=== PATIENT | male | born 1955 | race Hispanic/Latino ===

== ENCOUNTER 2021-01-30 11:19 | Emergency (ER) | payer BC, OTHER ==
[~2021-01-30] VITALS: Ht 167.6 cm; Wt 77.1 kg
[2021-01-30 11:59] LABS: BASOPHILS % (AUTO) 0.1 % (0.0-5.0); HEMATOCRIT 39.1 % (42-54); LYMPHOCYTES % (AUTO) 5.7 % (21.0-51.0); MEAN CORPUSCULAR HEMOGLOBIN 30.6 pg (27.0-33.0); MEAN CORPUSCULAR HGB CONC 33.5 g/dL (32.0-36.0); MEAN CORPUSCULAR VOLUME 91.4 fL (79-99); MONOCYTES % (AUTO) 3.5 % (3.0-13.0); NEUTROPHILS % (AUTO) 89.8 % (40.0-77.0); PLATELET COUNT (AUTO) 266 K/uL (130-400); RED BLOOD CELL COUNT(AUTO) 4.28 MIL/uL (4.50-6.20); RED CELL DISTRIBUTION WIDTH 13.4 % (11.0-15.5); WHITE BLOOD COUNT (AUTO) 16.1 K/uL (4.8-10.8)
[2021-01-30] MEDS ORDERED: MECLIZINE HCL 25 MG TABLET ONE (12:10)
[2021-01-30 12:16] LABS: CREATININE 1.2 mg/dL (0.5-1.5); POTASSIUM 5.2 mmol/L (3.5-5.1)
[2021-01-30 12:21] LABS: ALBUMIN 2.8 g/dL (3.5-5.0); BILIRUBIN,TOTAL 0.6 mg/dL (0.2-1.0); TOTAL PROTEIN, SERUM 7.7 g/dL (6.0-8.3)
[2021-01-30 12:34] LABS: APPEARANCE,URINE Clear (CLEAR); BILIRUBIN,URINE Negative (NEGATIVE); COLOR,URINE Yellow (YELLOW); GLUCOSE, URINE (UA) >=1000 mg/dL (NEGATIVE); KETONES,URINE Negative (NEGATIVE); LEUKOCYTE ESTERASE ,URINE Negative (NEGATIVE); NITRATE,URINE Negative (NEGATIVE); OCCULT BLOOD,URINE Negative (NEGATIVE); PH,URINE 5.5 (5.0-8.0); PROTEIN,URINE Negative (NEGATIVE); UROBILINOGEN,URINE 0.2 mg/dL (0.2-1.0)
[2021-01-30 12:42] LABS: RBC,URINE None Seen /HPF (0-1)
[2021-01-30 12:43] LABS: BACTERIA,URINE Few /HPF (None Seen); SQUAMOUS EPITHELIAL CELL,UR 0-2 /HPF (0-2); WBC,URINE None Seen /HPF (0-1)
[2021-01-30] MEDS ORDERED: NA ZIRCON CYCLOSIL(LOKELMA 10GM) PO ONE (13:00)
[2021-01-30] MEDS ORDERED: MECLIZINE HCL 25 MG TABLET PO ONE (13:00)
[2021-01-30 13:14] LABS: ABG BASE EXCESS -5.9 mmol/L (-2.0-3.0); ABG HCO3 16.5 mmol/L (21.0-28.0); ABG OXYGEN SATURATION 95.5 % (95.0-99.0); ABG PCO2 26 mmHg (35-48)
[2021-01-30] MEDS ORDERED: KAYEXALATE 15GM/60ML ONE (13:19)
[2021-01-30] MEDS ORDERED: KAYEXALATE 15GM/60ML PO ONE ×2 (13:30)
[2021-01-30] MEDS ORDERED: CEFTRIAXONE 1G VIAL IVP SCH (13:30)
[2021-01-30] MEDS ORDERED: ALBUTEROL INHALER 90MCG/INH IH PRN (13:30)
[2021-01-30] MEDS ORDERED: ACETAMINOPHEN WITH CODEINE 1 TAB TAB PO SCH (13:30)
[2021-01-30] MEDS ORDERED: BENZ-17 PO (13:33)
[2021-01-30] MEDS ORDERED: FLUT1DIS IH (13:33)
[2021-01-30] MEDS ORDERED: ALBU8.5H8 IH (13:33)
[2021-01-30] MEDS ORDERED: ALBUTEROL INHALER 90MCG/INH IH ONE (13:37)
[2021-01-30] MEDS ORDERED: CEFTRIAXONE 1G VIAL ONE (13:38)
[2021-01-30] MEDS ORDERED: ACETAMINOPHEN WITH CODEINE 1 TAB TAB ONE (13:38)
[2021-01-30 14:15] VITALS: BP 134/78
== END 2021-01-30 14:15 | disposition home or self-care (01) ==
LOC: EDH 11:19
DX: U07.1 COVID-19 (principal); J12.82 Pneumonia due to coronavirus disease 2019; J06.9 Acute upper respiratory infection, unspecified; E87.5 Hyperkalemia; E11.9 Type 2 diabetes mellitus without complications; Z79.84 Long term (current) use of oral hypoglycemic drugs
CPT/HCPCS: 36415; 36600; 70450; 71045; 80053; 81001; 82803; 84484; 85025; 87635; 93005; 96374; 99285; C9803; J0696

== ENCOUNTER 2021-02-07 12:45 | Observation (INO) | payer OTHER ==
[~2021-02-07] VITALS: Ht 170.2 cm; Wt 77.1 kg
[~2021-02-07 12:45] MED LIST: ALBU8.5H8 IH; BENZ-17 PO; FLUT1DIS IH
[2021-02-07 13:23] LABS: BASOPHILS % (AUTO) 0.5 % (0.0-5.0); EOSINOPHILS % (AUTO) 0.2 % (0.0-8.0); HEMATOCRIT 39.1 % (42-54); LYMPHOCYTES % (AUTO) 5.2 % (21.0-51.0); MEAN CORPUSCULAR HEMOGLOBIN 30.1 pg (27.0-33.0); MEAN CORPUSCULAR VOLUME 91.4 fL (79-99); MONOCYTES % (AUTO) 7.3 % (3.0-13.0); NEUTROPHILS % (AUTO) 83.4 % (40.0-77.0); PLATELET COUNT (AUTO) 568 K/uL (130-400); RED BLOOD CELL COUNT(AUTO) 4.28 MIL/uL (4.50-6.20)
[2021-02-07 13:54] LABS: B-TYPE NATRIURETIC PEPTIDE 49 pg/mL (0-100)
[2021-02-07 14:03] LABS: ALBUMIN 2.4 g/dL (3.5-5.0); BILIRUBIN,TOTAL 0.3 mg/dL (0.2-1.0); POTASSIUM 4.5 mmol/L (3.5-5.1); TOTAL PROTEIN, SERUM 7.7 g/dL (6.0-8.3)
[2021-02-07] MEDS ORDERED: CEFTRIAXONE 1G VIAL IVP ONE (15:00)
[2021-02-07] MEDS ORDERED: ENOXAPARIN SODIUM 40 MG/0.4 ML SYRINGE SQ ONE (15:00)
[2021-02-07] MEDS ORDERED: DEXAMETHASONE SOD PHOSPHATE 4 MG/ML 1ML VIAL IVP SCH (15:00)
[2021-02-07] MEDS ORDERED: AZITHROMYCIN 500MG VIAL IVPB ONE (15:00)
[2021-02-07] MEDS ORDERED: AZITHROMYCIN 500MG+NS 250ML 250 ML IV ONE (15:21)
[2021-02-07] MEDS ORDERED: LACTULOSE 20 GM/30 ML UDCUP PO PRN (17:00)
[2021-02-07] MEDS ORDERED: ACETAMINOPHEN 325 MG TAB PO PRN (17:00)
[2021-02-07] MEDS ORDERED: DOCUSATE SODIUM 100 MG CAP PO PRN (17:00)
[2021-02-07] MEDS: 0.9% NACL 250ML 250 ML IV SCH (17:00)
[2021-02-07] MEDS ORDERED: ALBUTEROL INHALER 90MCG/INH IH PRN (17:00)
[2021-02-07] MEDS ORDERED: CLONIDINE HCL 0.1 MG TABLET PO PRN (17:00)
[2021-02-07] MEDS ORDERED: ONDANSETRON 4MG INJ IVP PRN (17:00)
[2021-02-07] MEDS ORDERED: POTASSIUM CHLORIDE 10% ELIXIR 20 MEQ/15 ML UDCUP PO PRN (17:00)
[2021-02-07] MEDS ORDERED: CEFTRIAXONE 1G VIAL IVP SCH (17:00)
[2021-02-07] MEDS ORDERED: TEMAZEPAM 15 MG CAPSULE PO PRN (17:00)
[2021-02-07] MEDS ORDERED: GLUCAGON 1MG KIT 1 MG ML IM PRN (17:00)
[2021-02-07] MEDS ORDERED: ACETAMINOPHEN 650 MG SUPPOSITORY RC PRN (17:00)
[2021-02-07] MEDS ORDERED: KCL 20 MEQ ERTAB PO PRN (17:00)
[2021-02-07] MEDS ORDERED: LIDOCAINE HCL-MPF 1% 2ML VIAL IV PRN (17:00)
[2021-02-07] MEDS ORDERED: POTASSIUM CHLORIDE 20MEQ/100ML 100 ML IV PRN (17:00)
[2021-02-07] MEDS ORDERED: DEXTROSE 50%-WATER 50 ML DISP.SYRIN IV PRN (17:00)
[2021-02-07 17:12] LABS: ABG BASE EXCESS -2.6 mmol/L (-2.0-3.0); ABG HCO3 19.8 mmol/L (21.0-28.0); ABG OXYGEN SATURATION 95.3 % (95.0-99.0); ABG PCO2 29 mmHg (35-48)
[2021-02-07] MEDS ORDERED: IOHEXOL-350 75 ML VIAL IV ONE (17:17)
[2021-02-07 17:30] LABS: APPEARANCE,URINE Clear (CLEAR); BILIRUBIN,URINE Negative (NEGATIVE); COLOR,URINE Yellow (YELLOW); GLUCOSE, URINE (UA) >=1000 mg/dL (NEGATIVE); KETONES,URINE Trace mg/dL (NEGATIVE); LEUKOCYTE ESTERASE ,URINE Negative (NEGATIVE); NITRATE,URINE Negative (NEGATIVE); OCCULT BLOOD,URINE Negative (NEGATIVE); PH,URINE 5.5 (5.0-8.0); PROTEIN,URINE Negative (NEGATIVE); UROBILINOGEN,URINE 0.2 mg/dL (0.2-1.0)
[2021-02-07 17:35] LABS: BACTERIA,URINE Rare /HPF (None Seen); RBC,URINE 0-1 /HPF (0-1); SQUAMOUS EPITHELIAL CELL,UR None Seen /HPF (0-2); WBC,URINE 0-1 /HPF (0-1)
[2021-02-07] MEDS: DOXYCYCLINE 100MG+NS 250ML IV SCH (17:53)
[2021-02-07] MEDS ORDERED: INSULIN HUMULIN R 100 UNIT/ML 3ML SQ SCH (21:00)
[2021-02-07] MEDS: INSULIN HUMULIN R 100 UNIT/ML 3ML SQ SCH (21:15)
[2021-02-07] MEDS: ENOXAPARIN SODIUM 80 MG/0.8 ML SQ SCH (21:15)
[2021-02-08 05:59] LABS: HEMATOCRIT 39.7 % (42-54); MEAN CORPUSCULAR HGB CONC 33.5 g/dL (32.0-36.0); MEAN CORPUSCULAR VOLUME 89.6 fL (79-99); RED BLOOD CELL COUNT(AUTO) 4.43 MIL/uL (4.50-6.20); RED CELL DISTRIBUTION WIDTH 13.6 % (11.0-15.5); WHITE BLOOD COUNT (AUTO) 13.3 K/uL (4.8-10.8)
[2021-02-08 06:37] LABS: CREATININE 0.9 mg/dL (0.5-1.5); MAGNESIUM 2.7 mg/dL (1.80-2.40); PHOSPHORUS 4.5 mg/dL (2.5-4.9); POTASSIUM 4.4 mmol/L (3.5-5.1)
[2021-02-08] MEDS: DOXYCYCLINE 100MG+NS 250ML IV SCH (06:44)
[2021-02-08] MEDS: 0.9% NACL 250ML 250 ML IV SCH (06:44)
[2021-02-08 06:54] LABS: HEMOGLOBIN A1C 8.5 % (4.0-6.0)
[2021-02-08] MEDS: ENOXAPARIN SODIUM 80 MG/0.8 ML SQ SCH (08:33)
[2021-02-08] MEDS: INSULIN HUMULIN R 100 UNIT/ML 3ML SQ SCH ×3 (08:55→16:37)
[2021-02-08] MEDS ORDERED: DEXAMETHASONE SOD PHOSPHATE 10MG/ML 1ML VIAL IVP SCH (09:00)
[2021-02-08] MEDS ORDERED: ASPIRIN 81MG CHEW TAB PO SCH (09:00)
[2021-02-08] MEDS ORDERED: PANTOPRAZOLE 40 MG TAB DR PO SCH (09:00)
[2021-02-08 09:17] VITALS: BP 114/69
[2021-02-08 12:00] VITALS: BP 108/59
[2021-02-08] MEDS ORDERED: PRED20TA3 PO (13:47)
[2021-02-08] MEDS ORDERED: DOXY100C5 PO (13:48)
[2021-02-08] MEDS ORDERED: DEXA6TAB7 PO (15:39)
[2021-02-08 16:00] VITALS: BP 140/70
[2021-02-08] MEDS ORDERED: RIVA2.5T PO (16:00)
== END 2021-02-08 17:37 | disposition home or self-care (01) ==
LOC: EDH 12:45 → INTOOBSV 16:33 → EDHIP 16:33 → 2AH 02-08 08:00
PROVIDERS: ADMIT Internal Medicine Critical Care Medicine; ATTEND Internal Medicine Critical Care Medicine
DX: J96.01 Acute respiratory failure with hypoxia (principal); Z20.822 Contact with and (suspected) exposure to COVID-19; J18.9 Pneumonia, unspecified organism; U09.9 Post COVID-19 condition, unspecified; E11.9 Type 2 diabetes mellitus without complications; I10 Essential (primary) hypertension; R11.2 Nausea with vomiting, unspecified; Z79.01 Long term (current) use of anticoagulants; Z79.899 Other long term (current) drug therapy
CPT/HCPCS: 36415 ×2; 36600; 71045; 71275; 80048; 80053; 81001; 82550 ×4; 82803; 82948 ×4; 83036; 83605; 83615; 83735; 83874 ×4; 83880 ×2; 84100; 84145; 84484 ×4; 85025; 85027; 85378 ×2; 87040 ×2; 87071; 87205; 87635; 87804 ×2; 93005; 94760 ×4; 96361; 96365; 96372 ×2; 96375; 96376; 99285; C9803; G0378 ×25; J0456; J0696; J1100 ×2; J1650 ×3; J1815 ×2; J3490 ×2; Q9967

== ENCOUNTER 2021-05-05 12:05 | Emergency (ER) | payer OTHER ==
[~2021-05-05] VITALS: Ht 167.6 cm; Wt 78.9 kg
[~2021-05-05 12:05] MED LIST changes: +DEXA6TAB7 PO; +DOXY100C5 PO; +RIVA2.5T PO
[2021-05-05] MEDS ORDERED: NITROGLYCERIN 1GM OINT 1 INCH/1GM TD ONE (12:30)
[2021-05-05] MEDS ORDERED: NITROGLYCERIN 0.4 MG SL TAB SL PRN (12:30)
[2021-05-05] MEDS ORDERED: ASPIRIN 325MG TAB PO ONE (12:30)
[2021-05-05 12:31] LABS: BASOPHILS % (AUTO) 0.3 % (0.0-5.0); EOSINOPHILS % (AUTO) 0.2 % (0.0-8.0); HEMATOCRIT 44.6 % (42-54); LYMPHOCYTES % (AUTO) 5.7 % (21.0-51.0); MEAN CORPUSCULAR HEMOGLOBIN 30.9 pg (27.0-33.0); MEAN CORPUSCULAR VOLUME 93.9 fL (79-99); MONOCYTES % (AUTO) 6.1 % (3.0-13.0); NEUTROPHILS % (AUTO) 87.2 % (40.0-77.0); PLATELET COUNT (AUTO) 290 K/uL (130-400); RED BLOOD CELL COUNT(AUTO) 4.75 MIL/uL (4.50-6.20); RED CELL DISTRIBUTION WIDTH 14.2 % (11.0-15.5); WHITE BLOOD COUNT (AUTO) 18.1 K/uL (4.8-10.8)
[2021-05-05 12:48] LABS: ALBUMIN 4.1 g/dL (3.5-5.0); BILIRUBIN,TOTAL 0.4 mg/dL (0.2-1.0); CREATININE 0.8 mg/dL (0.5-1.5); POTASSIUM 4.5 mmol/L (3.5-5.1); TOTAL PROTEIN, SERUM 8.1 g/dL (6.0-8.3)
[2021-05-05] MEDS ORDERED: CEFTRIAXONE 1G VIAL IVP ONE (13:00)
[2021-05-05] MEDS ORDERED: AZITHROMYCIN 250 MG TABLET PO ONE (13:00)
[2021-05-05 13:02] LABS: APPEARANCE,URINE Clear (CLEAR); BILIRUBIN,URINE Negative (NEGATIVE); COLOR,URINE Yellow (YELLOW); GLUCOSE, URINE (UA) >=1000 mg/dL (NEGATIVE); KETONES,URINE 15 mg/dL (NEGATIVE); LEUKOCYTE ESTERASE ,URINE Negative (NEGATIVE); NITRATE,URINE Negative (NEGATIVE); OCCULT BLOOD,URINE Negative (NEGATIVE); PROTEIN,URINE Negative (NEGATIVE); UROBILINOGEN,URINE 0.2 mg/dL (0.2-1.0)
[2021-05-05] MEDS ORDERED: AEC81 PO (13:19)
[2021-05-05] MEDS ORDERED: EMPA25TA PO (13:19)
[2021-05-05] MEDS ORDERED: SIMV-43 PO (13:19)
[2021-05-05] MEDS ORDERED: LISI5TAB21 PO (13:19)
[2021-05-05] MEDS ORDERED: GLIP10TA9 PO (13:19)
[2021-05-05] MEDS ORDERED: METF-527 PO (13:19)
[2021-05-05 13:27] LABS: BACTERIA,URINE Rare /HPF (None Seen); RBC,URINE 0-1 /HPF (0-1); SQUAMOUS EPITHELIAL CELL,UR Rare /HPF (0-2); WBC,URINE 0-1 /HPF (0-1)
[2021-05-05] MEDS ORDERED: LEVO500T90 PO (15:45)
[2021-05-05] MEDS ORDERED: ACET-2247 PO (15:45)
[2021-05-05 16:00] VITALS: BP 147/68
== END 2021-05-05 15:58 | disposition home or self-care (01) ==
LOC: EDH 12:05
DX: J18.9 Pneumonia, unspecified organism (principal); K57.10 Diverticulosis of small intestine without perforation or abscess without bleeding; R07.89 Other chest pain; Z20.822 Contact with and (suspected) exposure to COVID-19; E11.9 Type 2 diabetes mellitus without complications; Z79.51 Long term (current) use of inhaled steroids; Z79.52 Long term (current) use of systemic steroids; Z79.82 Long term (current) use of aspirin; Z79.84 Long term (current) use of oral hypoglycemic drugs; Z79.899 Other long term (current) drug therapy
CPT/HCPCS: 36415; 71045; 74176; 80053; 81001; 82948; 83880; 84484 ×2; 85025; 86140; 87040 ×2; 87635; 93005; 96374; 99285; C9803; J0696

== ENCOUNTER 2021-05-05 21:19 | Inpatient (IN) | payer OTHER ==
[~2021-05-05] VITALS: Ht 167.6 cm; Wt 80.3 kg
[~2021-05-05 21:19] MED LIST changes: +ACET-2247 PO; +AEC81 PO; +EMPA25TA PO; +GLIP10TA9 PO; +LEVO500T90 PO; +LISI5TAB21 PO; +METF-527 PO; +SIMV-43 PO
[2021-05-05 21:40] LABS: BASOPHILS % (AUTO) 0.2 % (0.0-5.0); EOSINOPHILS % (AUTO) 0.1 % (0.0-8.0); HEMATOCRIT 43.9 % (42-54); LYMPHOCYTES % (AUTO) 6.1 % (21.0-51.0); MEAN CORPUSCULAR HEMOGLOBIN 30.9 pg (27.0-33.0); MEAN CORPUSCULAR HGB CONC 33.5 g/dL (32.0-36.0); MEAN CORPUSCULAR VOLUME 92.4 fL (79-99); MONOCYTES % (AUTO) 4.9 % (3.0-13.0); NEUTROPHILS % (AUTO) 88.2 % (40.0-77.0); PLATELET COUNT (AUTO) 283 K/uL (130-400); RED BLOOD CELL COUNT(AUTO) 4.75 MIL/uL (4.50-6.20); RED CELL DISTRIBUTION WIDTH 14.1 % (11.0-15.5); WHITE BLOOD COUNT (AUTO) 17.8 K/uL (4.8-10.8)
[2021-05-05] MEDS ORDERED: ASPIRIN 325MG TAB ONE (21:48)
[2021-05-05] MEDS ORDERED: NITROGLYCERIN 0.4 MG SL TAB SL ONE (21:49)
[2021-05-05] MEDS ORDERED: ASPIRIN 325MG TAB PO ONE (22:00)
[2021-05-05] MEDS ORDERED: NITROGLYCERIN 0.4 MG SL TAB SL PRN (22:00)
[2021-05-05 22:03] LABS: B-TYPE NATRIURETIC PEPTIDE 21 pg/mL (0-100)
[2021-05-05 22:12] LABS: CREATININE 0.9 mg/dL (0.5-1.5); POTASSIUM 4.2 mmol/L (3.5-5.1)
[2021-05-05 22:16] LABS: ALBUMIN 3.8 g/dL (3.5-5.0); BILIRUBIN,TOTAL 0.3 mg/dL (0.2-1.0); TOTAL PROTEIN, SERUM 7.5 g/dL (6.0-8.3)
[2021-05-06] MEDS ORDERED: NITROGLYCERIN 0.4 MG SL TAB SL PRN
[2021-05-06] MEDS ORDERED: CEFTRIAXONE 1G VIAL IVP SCH
[2021-05-06] MEDS ORDERED: ALBUTEROL 0.083% 2.5 MG/3 ML INH IH PRN
[2021-05-06] MEDS ORDERED: AZITHROMYCIN 500MG+NS 250ML IVPB SCH
[2021-05-06] MEDS: ACETAMINOPHEN 325 MG TAB PO PRN ×2 (00:52→18:10)
[2021-05-06] MEDS ORDERED: 0.9% NACL 250ML 250 ML ONE (00:59)
[2021-05-06] MEDS: MORPHINE 4 MG SYG IM PRN ×3 (01:19→15:41)
[2021-05-06 02:32] LABS: AMPHET/METH SCREEN,URINE NEGATIVE (NEGATIVE); BARBITURATE SCREEN, URINE NEGATIVE (NEGATIVE); BENZODIAZEPINES SCREEN,URINE NEGATIVE (NEGATIVE); CANNABINOID SCREEN,URINE NEGATIVE (NEGATIVE); COCAINE SCREEN,URINE NEGATIVE (NEGATIVE); OPIATE SCREEN,URINE NEGATIVE (NEGATIVE); PHENCYCLIDINE SCREEN,URINE NEGATIVE (NEGATIVE)
[2021-05-06] MEDS: ALBUTEROL 0.083% 2.5 MG/3 ML INH IH SCH (06:00)
[2021-05-06] MEDS ORDERED: IOHEXOL 350 MG/ML 100ML INFUS..BTL IV ONE (06:53)
[2021-05-06] MEDS: INSULIN HUMULIN R 100 UNIT/ML 3ML SQ SCH ×4 (08:18→21:00)
[2021-05-06] MEDS ORDERED: ASPIRIN 325MG TAB PO SCH (09:00)
[2021-05-06] MEDS ORDERED: ENOXAPARIN SODIUM 1 MG/KG SQ SCH (09:00)
[2021-05-06] MEDS ORDERED: ENOXAPARIN SODIUM 40 MG/0.4 ML SYRINGE SQ SCH ×2 (09:00)
[2021-05-06] MEDS ORDERED: ASPIRIN 81 MG EC TAB PO SCH (10:23)
[2021-05-06 10:27] LABS: HEMOGLOBIN A1C 8.1 % (4.0-6.0)
[2021-05-06] MEDS: FAMOTIDINE 20MG TAB PO SCH ×2 (10:28→21:12)
[2021-05-06] MEDS: ENOXAPARIN SODIUM 80 MG/0.8 ML SQ SCH ×2 (10:28→21:12)
[2021-05-06] MEDS ORDERED: ALBUTEROL INHALER 90MCG/INH IH PRN (10:30)
[2021-05-06] MEDS ORDERED: ZOSYN 3.375GM +NS 50ML IV SCH (10:30)
[2021-05-06 11:47] LABS: BASOPHILS % (AUTO) 0.2 % (0.0-5.0); EOSINOPHILS % (AUTO) 0.7 % (0.0-8.0); HEMATOCRIT 37.7 % (42-54); LYMPHOCYTES % (AUTO) 3.1 % (21.0-51.0); MEAN CORPUSCULAR HEMOGLOBIN 32.4 pg (27.0-33.0); MEAN CORPUSCULAR HGB CONC 35.5 g/dL (32.0-36.0); MEAN CORPUSCULAR VOLUME 91.1 fL (79-99); MONOCYTES % (AUTO) 8.1 % (3.0-13.0); NEUTROPHILS % (AUTO) 87.2 % (40.0-77.0); NUCLEATED RED BLOOD CELLS 0.1 % (0.0-0.19); PLATELET COUNT (AUTO) 434 K/uL (130-400); RED BLOOD CELL COUNT(AUTO) 4.14 MIL/uL (4.50-6.20); RED CELL DISTRIBUTION WIDTH 14.6 % (11.0-15.5); WHITE BLOOD COUNT (AUTO) 21.7 K/uL (4.8-10.8)
[2021-05-06 12:05] LABS: ALBUMIN 3.6 g/dL (3.5-5.0); BILIRUBIN,DIRECT 0.2 mg/dL (0.0-0.3); BILIRUBIN,TOTAL 0.5 mg/dL (0.2-1.0); CREATININE 1.1 mg/dL (0.5-1.5); POTASSIUM 4.5 mmol/L (3.5-5.1); TOTAL PROTEIN, SERUM 7.1 g/dL (6.0-8.3)
[2021-05-06 12:10] LABS: B-TYPE NATRIURETIC PEPTIDE 87 pg/mL (0-100)
[2021-05-06 12:12] LABS: CRP QUANTITATIVE 173.6 mg/L (0.00-9.0)
[2021-05-06] MEDS ORDERED: 0.9%NACL 50ML 50 ML IV ONE (12:13)
[2021-05-06] MEDS: LACTATED RINGERS 1000ML 1,000 ML IV SCH ×2 (12:29→21:13)
[2021-05-06 12:31] LABS: INR 1.04 (0.85-1.15); PROTHROMBIN TIME 11.3 SEC (9.6-11.6)
[2021-05-06 12:33] LABS: PARTIAL THROMBOPLASTIN TIME 29.1 SEC (26.3-35.5)
[2021-05-06 15:06] LABS: APPEARANCE,URINE Clear (CLEAR); BILIRUBIN,URINE Negative (NEGATIVE); COLOR,URINE Yellow (YELLOW); GLUCOSE, URINE (UA) >=1000 mg/dL (NEGATIVE); KETONES,URINE Trace mg/dL (NEGATIVE); LEUKOCYTE ESTERASE ,URINE Negative (NEGATIVE); NITRATE,URINE Negative (NEGATIVE); OCCULT BLOOD,URINE Negative (NEGATIVE); PH,URINE 5.5 (5.0-8.0); PROTEIN,URINE Negative (NEGATIVE); UROBILINOGEN,URINE 0.2 mg/dL (0.2-1.0)
[2021-05-06 15:38] LABS: BACTERIA,URINE None Seen /HPF (None Seen); RBC,URINE 0-1 /HPF (0-1); SQUAMOUS EPITHELIAL CELL,UR None Seen /HPF (0-2); WBC,URINE 0-1 /HPF (0-1)
[2021-05-06 16:40] VITALS: BP 128/80
[2021-05-06] MEDS ORDERED: DEXTROSE 50%-WATER 50 ML DISP.SYRIN IV PRN (19:00)
[2021-05-06] MEDS ORDERED: GLUCAGON 1MG KIT 1 MG ML IM PRN (19:00)
[2021-05-06] MEDS ORDERED: LIDOCAINE HCL-MPF 1% 2ML VIAL IV PRN (19:00)
[2021-05-06] MEDS ORDERED: POTASSIUM CHLORIDE 20MEQ/100ML 100 ML IV PRN (19:00)
[2021-05-06 20:00] VITALS: BP 121/62
[2021-05-06] MEDS: ZOSYN 3.375GM+NS 50ML 50 ML IV SCH (21:12)
[2021-05-06] MEDS: ATORVASTATIN 40 MG TABLET PO SCH (21:12)
[2021-05-06] MEDS: SIMVASTATIN 20 MG TABLET PO SCH (21:12)
[2021-05-07] VITALS (7 sets, daily range): BP systolic 101–144; BP diastolic 53–75
[2021-05-07 04:35] LABS: HEMATOCRIT 37.2 % (42-54); MEAN CORPUSCULAR HEMOGLOBIN 30.9 pg (27.0-33.0); MEAN CORPUSCULAR HGB CONC 33.1 g/dL (32.0-36.0); MEAN CORPUSCULAR VOLUME 93.5 fL (79-99); RED BLOOD CELL COUNT(AUTO) 3.98 MIL/uL (4.50-6.20); RED CELL DISTRIBUTION WIDTH 14.5 % (11.0-15.5); WHITE BLOOD COUNT (AUTO) 20.9 K/uL (4.8-10.8)
[2021-05-07 04:50] LABS: ALBUMIN 2.8 g/dL (3.5-5.0); BILIRUBIN,DIRECT 0.1 mg/dL (0.0-0.3); BILIRUBIN,TOTAL 0.6 mg/dL (0.2-1.0); CREATININE 1.1 mg/dL (0.5-1.5); POTASSIUM 3.9 mmol/L (3.5-5.1); TOTAL PROTEIN, SERUM 6.6 g/dL (6.0-8.3)
[2021-05-07 04:51] LABS: INR 1.1 (0.85-1.15); PROTHROMBIN TIME 11.9 SEC (9.6-11.6)
[2021-05-07 04:52] LABS: PARTIAL THROMBOPLASTIN TIME 38.3 SEC (26.3-35.5)
[2021-05-07] MEDS: ZOSYN 3.375GM+NS 50ML 50 ML IV SCH ×3 (05:09→21:16)
[2021-05-07] MEDS: INSULIN HUMULIN R 100 UNIT/ML 3ML SQ SCH ×4 (06:44→20:44)
[2021-05-07] MEDS: LACTATED RINGERS 1000ML 1,000 ML IV SCH ×2 (06:44→10:38)
[2021-05-07] MEDS: FAMOTIDINE 20MG TAB PO SCH ×2 (17:45→20:37)
[2021-05-07] MEDS: ASPIRIN 81 MG EC TAB PO SCH (17:45)
[2021-05-07] MEDS: ENOXAPARIN SODIUM 80 MG/0.8 ML SQ SCH ×2 (17:46→20:37)
[2021-05-07] MEDS: SIMVASTATIN 20 MG TABLET PO SCH (20:37)
[2021-05-07] MEDS: ATORVASTATIN 40 MG TABLET PO SCH (20:37)
[2021-05-08] MEDS: LACTATED RINGERS 1000ML 1,000 ML IV SCH ×3 (01:01→22:20)
[2021-05-08 04:00] VITALS: BP 126/66
[2021-05-08] MEDS: ZOSYN 3.375GM+NS 50ML 50 ML IV SCH ×3 (04:09→21:08)
[2021-05-08] MEDS: INSULIN HUMULIN R 100 UNIT/ML 3ML SQ SCH ×4 (05:43→21:08)
[2021-05-08 06:13] LABS: BASOPHILS % (AUTO) 0.1 % (0.0-5.0); EOSINOPHILS % (AUTO) 0.3 % (0.0-8.0); HEMATOCRIT 34.6 % (42-54); LYMPHOCYTES % (AUTO) 7.1 % (21.0-51.0); MEAN CORPUSCULAR HEMOGLOBIN 30.4 pg (27.0-33.0); MEAN CORPUSCULAR HGB CONC 32.9 g/dL (32.0-36.0); MEAN CORPUSCULAR VOLUME 92.3 fL (79-99); NEUTROPHILS % (AUTO) 79.4 % (40.0-77.0); PLATELET COUNT (AUTO) 234 K/uL (130-400); RED BLOOD CELL COUNT(AUTO) 3.75 MIL/uL (4.50-6.20); RED CELL DISTRIBUTION WIDTH 14.4 % (11.0-15.5); WHITE BLOOD COUNT (AUTO) 15.9 K/uL (4.8-10.8)
[2021-05-08 06:29] LABS: INR 0.99 (0.85-1.15); PROTHROMBIN TIME 10.8 SEC (9.6-11.6)
[2021-05-08 06:30] LABS: PARTIAL THROMBOPLASTIN TIME 34.6 SEC (26.3-35.5)
[2021-05-08 06:39] LABS: ALBUMIN 2.5 g/dL (3.5-5.0); BILIRUBIN,TOTAL 0.5 mg/dL (0.2-1.0); CREATININE 0.9 mg/dL (0.5-1.5); POTASSIUM 3.7 mmol/L (3.5-5.1); TOTAL PROTEIN, SERUM 6.2 g/dL (6.0-8.3)
[2021-05-08 08:02] VITALS: BP 131/69
[2021-05-08] MEDS: ASPIRIN 81 MG EC TAB PO SCH (08:22)
[2021-05-08] MEDS: FAMOTIDINE 20MG TAB PO SCH ×2 (08:22→21:08)
[2021-05-08] MEDS: ENOXAPARIN SODIUM 80 MG/0.8 ML SQ SCH (08:23)
[2021-05-08 12:06] VITALS: BP 141/75
[2021-05-08 15:34] VITALS: BP 137/75
[2021-05-08 20:00] VITALS: BP 150/69
[2021-05-08] MEDS: ATORVASTATIN 40 MG TABLET PO SCH (21:08)
[2021-05-08] MEDS: ENOXAPARIN SODIUM 30 MG/0.3 ML SQ SCH (21:09)
[2021-05-09] VITALS (27 sets, daily range): BP systolic 114–190; BP diastolic 52–95
[2021-05-09] MEDS: ZOSYN 3.375GM+NS 50ML 50 ML IV SCH ×2 (04:02→21:26)
[2021-05-09 05:39] LABS: BASOPHILS % (AUTO) 0.3 % (0.0-5.0); EOSINOPHILS % (AUTO) 0.6 % (0.0-8.0); HEMATOCRIT 33.8 % (42-54); LYMPHOCYTES % (AUTO) 11.3 % (21.0-51.0); MEAN CORPUSCULAR HEMOGLOBIN 31.2 pg (27.0-33.0); MEAN CORPUSCULAR HGB CONC 33.4 g/dL (32.0-36.0); MEAN CORPUSCULAR VOLUME 93.4 fL (79-99); MONOCYTES % (AUTO) 13.7 % (3.0-13.0); NEUTROPHILS % (AUTO) 73.4 % (40.0-77.0); PLATELET COUNT (AUTO) 256 K/uL (130-400); RED BLOOD CELL COUNT(AUTO) 3.62 MIL/uL (4.50-6.20); RED CELL DISTRIBUTION WIDTH 14.4 % (11.0-15.5); WHITE BLOOD COUNT (AUTO) 10.8 K/uL (4.8-10.8)
[2021-05-09 06:10] LABS: ALBUMIN 2.3 g/dL (3.5-5.0); BILIRUBIN,TOTAL 0.4 mg/dL (0.2-1.0); CREATININE 0.9 mg/dL (0.5-1.5); POTASSIUM 3.8 mmol/L (3.5-5.1); TOTAL PROTEIN, SERUM 6.1 g/dL (6.0-8.3)
[2021-05-09] MEDS: INSULIN HUMULIN R 100 UNIT/ML 3ML SQ SCH ×4 (06:25→21:41)
[2021-05-09] MEDS: LACTATED RINGERS 1000ML 1,000 ML IV SCH ×2 (06:25→21:28)
[2021-05-09] MEDS: ENOXAPARIN SODIUM 30 MG/0.3 ML SQ SCH (07:56)
[2021-05-09] MEDS: FAMOTIDINE 20MG TAB PO SCH ×2 (09:00→21:27)
[2021-05-09] MEDS: ASPIRIN 81 MG EC TAB PO SCH (09:00)
[2021-05-09] MEDS ORDERED: MIDAZOLAM HCL 1 MG/ML 2ML VIAL ONE (12:06)
[2021-05-09] MEDS ORDERED: PROPOFOL 10 MG/ML 20ML VIAL IV ONE (12:08)
[2021-05-09] MEDS ORDERED: LIDOCAINE PF 100MG/5ML (2%) SYRINGE 5ML ONE (12:08)
[2021-05-09] MEDS ORDERED: FENTANYL CITRATE PF 50 MCG/1 ML 2ML VIAL ONE ×2 (12:08→13:14)
[2021-05-09] MEDS ORDERED: ROCURONIUM 10MG/1ML SYR 10 MG/ML ML ONE ×2 (12:08→13:16)
[2021-05-09] MEDS ORDERED: ONDANSETRON 4MG INJ ONE (12:08)
[2021-05-09] MEDS ORDERED: BUPIVACAINE/PF 0.25% 30ML VIAL IJ ONE (12:41)
[2021-05-09] MEDS ORDERED: NEOSTIGMINE 5MG/5ML SYR IV ONE (13:54)
[2021-05-09] MEDS ORDERED: MEPERIDINE-PF 25 MG/ML SYG ONE ×3 (15:13→16:07)
[2021-05-09] MEDS: MORPHINE 4 MG SYG IM PRN ×2 (18:49→23:25)
[2021-05-09] MEDS ORDERED: ACET1TAB25 PO (19:10)
[2021-05-09] MEDS: ATORVASTATIN 40 MG TABLET PO SCH (21:27)
[2021-05-10 00:35] VITALS: BP 170/85
[2021-05-10 03:46] VITALS: BP 150/87
[2021-05-10] MEDS: ZOSYN 3.375GM+NS 50ML 50 ML IV SCH ×3 (05:22→21:51)
[2021-05-10] MEDS: LACTATED RINGERS 1000ML 1,000 ML IV SCH (05:23)
[2021-05-10] MEDS: MORPHINE 4 MG SYG IM PRN ×2 (05:23→17:10)
[2021-05-10 05:40] LABS: BASOPHILS % (AUTO) 0.2 % (0.0-5.0); HEMATOCRIT 33.2 % (42-54); MEAN CORPUSCULAR HEMOGLOBIN 30.3 pg (27.0-33.0); MEAN CORPUSCULAR HGB CONC 32.5 g/dL (32.0-36.0); MONOCYTES % (AUTO) 11.4 % (3.0-13.0); NEUTROPHILS % (AUTO) 81.8 % (40.0-77.0); PLATELET COUNT (AUTO) 268 K/uL (130-400); RED BLOOD CELL COUNT(AUTO) 3.57 MIL/uL (4.50-6.20); RED CELL DISTRIBUTION WIDTH 14.3 % (11.0-15.5); WHITE BLOOD COUNT (AUTO) 14.3 K/uL (4.8-10.8)
[2021-05-10 05:54] LABS: ALBUMIN 2.5 g/dL (3.5-5.0); BILIRUBIN,TOTAL 0.6 mg/dL (0.2-1.0); CREATININE 0.7 mg/dL (0.5-1.5); POTASSIUM 3.6 mmol/L (3.5-5.1); TOTAL PROTEIN, SERUM 6.3 g/dL (6.0-8.3)
[2021-05-10] MEDS: INSULIN HUMULIN R 100 UNIT/ML 3ML SQ SCH ×4 (06:46→21:54)
[2021-05-10 08:00] VITALS: BP 143/60
[2021-05-10] MEDS: ASPIRIN 81 MG EC TAB PO SCH (08:36)
[2021-05-10] MEDS: FAMOTIDINE 20MG TAB PO SCH ×2 (08:36→21:51)
[2021-05-10 12:00] VITALS: BP 166/76
[2021-05-10] MEDS ORDERED: LACTULOSE 20 GM/30 ML UDCUP PO SCH (13:30)
[2021-05-10 16:00] VITALS: BP 149/76
[2021-05-10] MEDS: ALBUTEROL 0.083% 2.5 MG/3 ML INH IH SCH (18:00)
[2021-05-10 20:24] VITALS: BP 133/56
[2021-05-10] MEDS: ATORVASTATIN 40 MG TABLET PO SCH (21:51)
[2021-05-11 00:16] VITALS: BP 141/61
[2021-05-11] MEDS: HYDROCODONE/ACETAMINOPHEN 7.5/325 MG TAB PO PRN ×2 (03:23→12:35)
[2021-05-11 03:33] VITALS: BP 149/71
[2021-05-11 04:12] LABS: BASOPHILS % (AUTO) 0.3 % (0.0-5.0); EOSINOPHILS % (AUTO) 0.2 % (0.0-8.0); HEMATOCRIT 31.5 % (42-54); LYMPHOCYTES % (AUTO) 5.9 % (21.0-51.0); MEAN CORPUSCULAR HEMOGLOBIN 30.7 pg (27.0-33.0); MEAN CORPUSCULAR HGB CONC 32.7 g/dL (32.0-36.0); MEAN CORPUSCULAR VOLUME 93.8 fL (79-99); MONOCYTES % (AUTO) 11.9 % (3.0-13.0); NEUTROPHILS % (AUTO) 79.9 % (40.0-77.0); PLATELET COUNT (AUTO) 288 K/uL (130-400); RED BLOOD CELL COUNT(AUTO) 3.36 MIL/uL (4.50-6.20); RED CELL DISTRIBUTION WIDTH 14.3 % (11.0-15.5); WHITE BLOOD COUNT (AUTO) 16.7 K/uL (4.8-10.8)
[2021-05-11 04:32] LABS: ALBUMIN 2.1 g/dL (3.5-5.0); BILIRUBIN,TOTAL 0.4 mg/dL (0.2-1.0); CREATININE 0.8 mg/dL (0.5-1.5); POTASSIUM 3.5 mmol/L (3.5-5.1)
[2021-05-11] MEDS: ZOSYN 3.375GM+NS 50ML 50 ML IV SCH ×2 (05:26→12:37)
[2021-05-11] MEDS: INSULIN HUMULIN R 100 UNIT/ML 3ML SQ SCH ×2 (06:38→12:18)
[2021-05-11 07:20] VITALS: BP 153/74
[2021-05-11] MEDS: FAMOTIDINE 20MG TAB PO SCH (08:18)
[2021-05-11] MEDS: ASPIRIN 81 MG EC TAB PO SCH (08:18)
[2021-05-11] MEDS ORDERED: LACTULOSE 20 GM/30 ML UDCUP PO SCH (09:00)
[2021-05-11] MEDS ORDERED: AMOX1TAB16 PO (09:07)
[2021-05-11 11:20] VITALS: BP 157/74
== END 2021-05-11 17:00 | disposition home or self-care (01) | DRG 853 ==
LOC: EDH 21:19 → EDHIP 23:21 → OBSVTOIN 23:21 → 3CH 05-06 16:40
PROVIDERS: ADMIT Internal Medicine Critical Care Medicine; ATTEND Internal Medicine Critical Care Medicine
PROC: 0FN44ZZ Release Gallbladder, Percutaneous Endoscopic Approach (ICD-10-PCS; 2021-05-09)
PROC: 0FT44ZZ Resection of Gallbladder, Percutaneous Endoscopic Approach (ICD-10-PCS; principal; 2021-05-09 12:00)
DX: A41.9 Sepsis, unspecified organism (principal); J18.9 Pneumonia, unspecified organism; I20.0 Unstable angina; K80.00 Calculus of gallbladder with acute cholecystitis without obstruction; Z20.822 Contact with and (suspected) exposure to COVID-19; I10 Essential (primary) hypertension; E78.5 Hyperlipidemia, unspecified; E11.65 Type 2 diabetes mellitus with hyperglycemia; K82.8 Other specified diseases of gallbladder; Z79.899 Other long term (current) drug therapy; Z79.82 Long term (current) use of aspirin; Z79.01 Long term (current) use of anticoagulants; Z83.3 Family history of diabetes mellitus; Z82.49 Family history of ischemic heart disease and other diseases of the circulatory system
CPT/HCPCS: 36415; 71045; 71275; 74176; 76705; 78226; 80048; 80053; 80076; 80305; 81001; 82948; 83036; 83605; 83690; 83880; 84145; 84484; 85014; 85018; 85025; 85027; 85378; 85610; 85730; 86140; 87040; 87077; 87088; 87186; 87635; 87804; 93005; 94664; 96374; A9537; C9803; G0378; J0456; J0696; J1650; J1815; J2001; J2175; J2250; J2270; J2405; J2543; J2704; J2710; J3010; J3490; J7030; J7050; J7120; Q9967

== ENCOUNTER 2022-07-24 11:02 | Emergency (ER) | payer OTHER ==
[~2022-07-24] VITALS: Ht 177.8 cm; Wt 72.6 kg
[~2022-07-24 11:02] MED LIST changes: +ACET-2079 PO; +AMOX1TAB16 PO; -DEXA6TAB7 PO; -DOXY100C5 PO; -LEVO500T90 PO; -RIVA2.5T PO
[2022-07-24 11:23] LABS: BASOPHILS % (AUTO) 0.9 % (0.0-5.0); EOSINOPHILS % (AUTO) 0.4 % (0.0-8.0); HEMATOCRIT 37.1 % (42-54); LYMPHOCYTES % (AUTO) 12.3 % (21.0-51.0); MEAN CORPUSCULAR HEMOGLOBIN 29.1 pg (27.0-33.0); MEAN CORPUSCULAR HGB CONC 33.2 g/dL (32.0-36.0); MEAN CORPUSCULAR VOLUME 87.9 fL (79-99); MONOCYTES % (AUTO) 10.6 % (3.0-13.0); NEUTROPHILS % (AUTO) 70.8 % (40.0-77.0); PLATELET COUNT (AUTO) 476 K/uL (130-400); RED BLOOD CELL COUNT(AUTO) 4.22 MIL/uL (4.50-6.20); RED CELL DISTRIBUTION WIDTH 15.7 % (11.0-15.5); WHITE BLOOD COUNT (AUTO) 16.3 K/uL (4.8-10.8)
[2022-07-24 11:34] LABS: CREATININE 0.8 mg/dL (0.5-1.5); POTASSIUM 4.1 mmol/L (3.5-5.1)
[2022-07-24 11:38] LABS: ALBUMIN 2.8 g/dL (3.5-5.0); MAGNESIUM 2.2 mg/dL (1.80-2.40); TOTAL PROTEIN, SERUM 7.7 g/dL (6.0-8.3)
[2022-07-24] MEDS ORDERED: MAG/ALUM/SIMETH 30 ML UDCUP PO ONE (12:00)
[2022-07-24] MEDS ORDERED: LIDOCAINE HCL 2% VISCOUS 15 ML UDCUP PO ONE (12:00)
[2022-07-24 12:13] VITALS: BP 127/57
[2022-07-24 12:25] LABS: APPEARANCE,URINE CLEAR (CLEAR); BILIRUBIN,URINE NEGATIVE (NEGATIVE); COLOR,URINE LIGHT-YELLOW (YELLOW); GLUCOSE, URINE (UA) >=1000 mg/dL (NEGATIVE); KETONES,URINE NEGATIVE (NEGATIVE); LEUKOCYTE ESTERASE ,URINE NEGATIVE Leu/uL (NEGATIVE); NITRATE,URINE NEGATIVE (NEGATIVE); OCCULT BLOOD,URINE NEGATIVE (NEGATIVE); PH,URINE 6.5 (5.0-8.0); PROTEIN,URINE NEGATIVE (NEGATIVE); UROBILINOGEN,URINE 0.2 mg/dL (0.2-1.0)
[2022-07-24 12:35] LABS: RBC,URINE 0-1 /HPF (0-1); WBC,URINE 0-1 /HPF (0-1)
[2022-07-24] MEDS ORDERED: ESOM20CA60 PO (12:48)
== END 2022-07-24 12:57 | disposition home or self-care (01) ==
LOC: EDH 11:02
DX: R07.89 Other chest pain (principal); K21.9 Gastro-esophageal reflux disease without esophagitis; I10 Essential (primary) hypertension; E78.00 Pure hypercholesterolemia, unspecified; E11.9 Type 2 diabetes mellitus without complications; Z90.49 Acquired absence of other specified parts of digestive tract; Z79.899 Other long term (current) drug therapy
CPT/HCPCS: 36415; 71045; 80053; 81001; 83735; 84484; 85025; 93005

== ENCOUNTER 2022-08-01 08:20 | Day surgery (SDC) | payer OTHER ==
[~2022-08-01 08:20] MED LIST changes: +ESOM20CA60 PO
[2022-08-01 08:45] LABS: BASOPHILS % (AUTO) 0.3 % (0.0-5.0); EOSINOPHILS % (AUTO) 0.3 % (0.0-8.0); HEMATOCRIT 37.1 % (42-54); LYMPHOCYTES % (AUTO) 8.8 % (21.0-51.0); MEAN CORPUSCULAR HEMOGLOBIN 28.7 pg (27.0-33.0); MEAN CORPUSCULAR HGB CONC 32.1 g/dL (32.0-36.0); MEAN CORPUSCULAR VOLUME 89.6 fL (79-99); MONOCYTES % (AUTO) 8.9 % (3.0-13.0); NEUTROPHILS % (AUTO) 80.8 % (40.0-77.0); PLATELET COUNT (AUTO) 571 K/uL (130-400); RED BLOOD CELL COUNT(AUTO) 4.14 MIL/uL (4.50-6.20); WHITE BLOOD COUNT (AUTO) 17.2 K/uL (4.8-10.8)
[2022-08-01 08:56] LABS: INR 0.96 (0.85-1.15); PROTHROMBIN TIME 10.5 SEC (9.6-11.6)
[2022-08-01 08:58] LABS: PARTIAL THROMBOPLASTIN TIME 27.4 SEC (26.3-35.5)
[2022-08-01] MEDS ORDERED: 0.9%NACL 1000ML 1,000 ML IV ONE (09:02)
== END 2022-08-01 10:25 | disposition home or self-care (01) ==
LOC: RAH 08:20 → DAH 08:20 → RAH 10:25
PROVIDERS: ATTEND Internal Medicine Gastroenterology
DX: R94.5 Abnormal results of liver function studies (principal); I10 Essential (primary) hypertension; E11.9 Type 2 diabetes mellitus without complications; E78.5 Hyperlipidemia, unspecified; I25.10 Atherosclerotic heart disease of native coronary artery without angina pectoris; K21.9 Gastro-esophageal reflux disease without esophagitis; K76.0 Fatty (change of) liver, not elsewhere classified; K57.30 Diverticulosis of large intestine without perforation or abscess without bleeding; Z53.8 Procedure and treatment not carried out for other reasons; Z90.49 Acquired absence of other specified parts of digestive tract; Z79.82 Long term (current) use of aspirin; Z79.84 Long term (current) use of oral hypoglycemic drugs; Z98.890 Other specified postprocedural states; Z79.01 Long term (current) use of anticoagulants; Z79.899 Other long term (current) drug therapy; Z86.010 Personal history of colon polyps
CPT/HCPCS: 85025; 85730; 82948; 85610; 36415; J7030; A4215; A4222; A4221; A4663; A4216; A4606; A4223 ×3

== ENCOUNTER 2023-06-02 17:01 | Emergency (ER) | payer OTHER ==
[~2023-06-02] VITALS: Ht 177.8 cm; Wt 72.6 kg
[~2023-06-02 17:01] MED LIST changes: -ACET-2079 PO; -ALBU8.5H8 IH; -AMOX1TAB16 PO; -BENZ-17 PO; -FLUT1DIS IH; -LISI5TAB21 PO; +PANT40I IVP; -SIMV-43 PO
[2023-06-02 17:53] LABS: BASOPHILS # (AUTO) 0.02 K/uL (0.00-0.20); BASOPHILS % (AUTO) 0.2 % (0.0-5.0); EOSINOPHILS # (AUTO) 0.01 K/uL (0.00-0.70); EOSINOPHILS % (AUTO) 0.1 % (0.0-8.0); HEMATOCRIT 37.3 % (42-54); IMMATURE GRANULOCYTE ABSOLUTE 0.08 K/uL (0-1); LYMPHOCYTES # (AUTO) 0.9 K/uL (1.0-4.8); LYMPHOCYTES % (AUTO) 8.9 % (21.0-51.0); MEAN CORPUSCULAR HEMOGLOBIN 31.2 pg (27.0-33.0); MEAN CORPUSCULAR HGB CONC 34.3 g/dL (32.0-36.0); MONOCYTES # (AUTO) 1.5 K/uL (0.1-1.0); MONOCYTES % (AUTO) 14.6 % (3.0-13.0); NEUTROPHILS # (AUTO) 7.9 K/uL (1.8-7.7); NEUTROPHILS % (AUTO) 75.4 % (40.0-77.0); PLATELET COUNT (AUTO) 346 K/uL (130-400); RED CELL DISTRIBUTION WIDTH 15.9 % (11.0-15.5); WHITE BLOOD COUNT (AUTO) 10.5 K/uL (4.8-10.8)
[2023-06-02 18:03] LABS: CREATININE 1.1 mg/dL (0.5-1.5); POTASSIUM 4.1 mmol/L (3.5-5.1)
[2023-06-02 18:15] LABS: ALBUMIN 3.3 g/dL (3.5-5.0); BILIRUBIN,TOTAL 2.1 mg/dL (0.2-1.0); TOTAL PROTEIN, SERUM 8.4 g/dL (6.0-8.3)
[2023-06-02] MEDS ORDERED: IOHEXOL 350 MG/ML 100ML INFUS..BTL IV ONE (20:52)
[2023-06-02 21:02] VITALS: BP 155/77; PULSE 70; RESP 17; O2SAT 96
[2023-06-02 21:12] LABS: APPEARANCE,URINE CLEAR (CLEAR); BILIRUBIN,URINE NEGATIVE (NEGATIVE); COLOR,URINE YELLOW (YELLOW); GLUCOSE, URINE (UA) >=1000 mg/dL (NEGATIVE); KETONES,URINE NEGATIVE (NEGATIVE); LEUKOCYTE ESTERASE ,URINE NEGATIVE Leu/uL (NEGATIVE); NITRATE,URINE NEGATIVE (NEGATIVE); OCCULT BLOOD,URINE NEGATIVE (NEGATIVE); PROTEIN,URINE NEGATIVE (NEGATIVE); UROBILINOGEN,URINE 0.2 mg/dL (0.2-1.0)
[2023-06-02 21:15] LABS: ADD UA MICROSCOPIC YES
[2023-06-02 21:18] LABS: MUCUS,URINE RARE LPF (None Seen); RBC,URINE 0-1 /HPF (0-1); WBC,URINE 0-1 /HPF (0-1)
[2023-06-02 23:28] LABS: INR <= 0.93 (0.85-1.15); PROTHROMBIN TIME 10.3 SEC (9.6-11.6)
[2023-06-02 23:29] LABS: PARTIAL THROMBOPLASTIN TIME 31.3 SEC (26.3-35.5)
== END 2023-06-03 00:28 | disposition home or self-care (01) ==
LOC: EDH 17:01
DX: R79.89 Other specified abnormal findings of blood chemistry (principal); E11.9 Type 2 diabetes mellitus without complications; E78.00 Pure hypercholesterolemia, unspecified; Z79.82 Long term (current) use of aspirin; Z79.84 Long term (current) use of oral hypoglycemic drugs; Z79.899 Other long term (current) drug therapy; Z90.49 Acquired absence of other specified parts of digestive tract
CPT/HCPCS: 99285; 74177; 71045; 80053; 83690; 85025; 85610; 85730; 84153; 81001; 36415; 93005; Q9967

== ENCOUNTER 2024-06-22 07:12 | Emergency (ER) | payer OTHER ==
[~2024-06-22] VITALS: Ht 177.8 cm; Wt 78.0 kg
[~2024-06-22 07:12] MED LIST changes: -ACET-2247 PO; +GLIP10TA16 PO; -GLIP10TA9 PO; -PANT40I IVP
[2024-06-22] MEDS: dexaMETHasone SOD PHOSPHATE 4 MG/ML 1ML VIAL IM ONE (07:36)
[2024-06-22] MEDS: acetaMINOPHEN 500 MG TABLET PO ONE (07:36)
[2024-06-22 07:46] LABS: RAPID GROUP A STREP negative (NEGATIVE)
[2024-06-22 07:50] LABS: SARS-CoV-2, RNA, NAAT NEGATIVE SARS CoV-2 (NEGATIVE)
[2024-06-22 07:57] LABS: INFLUENZA TYPE A Negative For Type A (NEGATIVE); INFLUENZA TYPE B Negative For Type B (NEGATIVE)
[2024-06-22] MEDS: 0.9%NACL 1000ML 1,000 ML IV ONE (07:57)
--- NOTE | 2024-06-22 07:58 | ERN ---
General Chief Complaint: Headache Stated Complaint: HEADACHE Time Seen by MD: 07:14 Source: patient History of Present Illness Initial Comments Patient is a 69-year-old gentleman coming in to be evaluated for frontal headache. Patient states that the headache began earlier in the morning. He does state he has a mild cough and states that the in the coughs he does have more discomfort. No fever or chills. Allergies: Coded Allergies: No Known Drug Allergies (Verified Allergy, 09/09/12) Home Meds Active Scripts Esomeprazole Magnesium (Nexium 24Hr) 20 Mg Capsule.dr, 20 MG PO DAILY, #30 CAP Prov:YASMINE PEREZ MD 07/24/22 Reported Medications Empagliflozin (Jardiance) 25 Mg Tablet, 25 MG PO DAILY, TAB 05/05/21 Aspirin (ASPIRIN 81 MG ECTAB) 81 Mg Ectab, 81 MG PO DAILY, TAB.EC 05/05/21 Glipizide (Glipizide) 10 Mg Tablet, 20 MG PO BID, TAB 05/05/21 Metformin HCl (Metformin HCl ER) 1,000 Mg Tab.er.24, 1000 MG PO BID 05/05/21 Past Medical History Past Medical History: Diabetes-Type II, High Cholesterol, Heart Disease, Liver Disease Medical History Other: GASTRITIS, COLITIS, HYPOTENSION Past Surgical History: Cholecystectomy Social History Social History: ETOH, Other ROS Dictation CONSTITUTIONAL: No chills, no fever, no weakness, no diaphoresis, no malaise. HEAD/FACE: No signs of trauma. EENT: No eye pain, no blurred vision, no tearing, no double vision, no ear pain, no ear discharge, no nose pain, no nasal congestion, no throat pain, no throat swelling, no mouth pain. RESPIRATORY: No cough, no orthopnea, no SOB, no stridor, no wheezing. CARDIOVASCULAR: No chest pain, no edema, no palpitations, no syncope. GASTROINTESTINAL/ABDOMINAL: No abdominal pain, no constipation, no diarrhea, no nausea, no vomiting. GENITOURINARY: No abnormal discharge, no dysuria, no frequent urination, no hematuria. No complaints of pain in the genitals. MUSCULOSKELETAL: No back pain, no gout, no joint pain, no joint swelling, no muscle pain, no muscle stiffness, no neck pain. INTEGUMENTARY: No change in color, no change in hair/nails, no dryness, no lesion, no lumps, no rash. NEUROLOGICAL/PSYCH: No anxiety, not depressed, no emotional problem, no headache, no numbness, no pre-existing deficit, no history of seizures, no tremors, no weakness. HEMATOLOGIC/LYMPHATIC: Not anemic, no history of blood clots, no apparent bleeding, no bruising, glands not swollen. All Systems Negative, Except as Noted. Physical Exam Physical Exam Dictation VITAL SIGNS: Reviewed. GENERAL APPEARANCE: Alert, oriented x3, no acute distress, obese. HEAD AND FACE: Non-traumatic. EYES: PERRL, pink conjunctivas, eyelid no trauma, anterior chamber clear. EARS: Pinnas intact and no signs of trauma or erythema. Ear canals clear and no discharge. TMs erythema. NOSE: No discharge, no bleeding. OROPHARYNX: Mouth normal, teeth no caries, tongue pink. Pharynx erythema. Tonsils no exudates, no abscesses noted. Mucous membrane moist. NECK: Supple, non-tender, no thyromegaly, no masses, no JVD, no bruits. BREAST: Deferred. CHEST: No tenderness, no crepitus, no paradoxical movement, no retractions. LUNGS: Clear, well-ventilated, symmetric, no rales, no wheezing, no rhonchi, no stridor, good breath sounds bilaterally. HEART: Regular rate, regular rhythm, no murmur, no gallops. VASCULAR: No peripheral edema. ABDOMEN: Soft, positive bowel sounds, nondistended, no guarding, nontender, no rebound, no masses no hepatomegaly, no splenomegaly, no Hunt's sign, no hernias. RECTAL: Deferred. GENITAL: Deferred. NEUROLOGICAL: Normal speech, gross motor function intact, gross sensory function intact. MUSCULOSKELETAL: Neck nontender, full range of motion, back nontender, full range of motion. EXTREMITIES: Nontender, full range of motion. SKIN: Color pink, dry, no turgor, no rash, no lacerations, no abrasions, no contusions. LYMPHATICS: Deferred. Results Laboratory and Microbiology Lab and Micro Result Laboratory Tests Test 06/22/24 07:31 06/22/24 07:54 06/22/24 08:32 Influenza Type A Antigen Negative For Type A Influenza Type B Antigen Negative For Type B SARS-CoV-2, RNA, NAAT NEGATIVE SARS CoV-2 Group A Streptococcus Rapid negative (NEGATIVE) White Blood Count 7.6 K/uL (4.8-10.8) Red Blood Count 4.48 MIL/uL (4.50-6.20) L Hemoglobin 13.5 g/dL (14.0-18.0) L Hematocrit 41.2 % (42-54) L Mean Corpuscular Volume 92.0 fL (79-99) Mean Corpuscular Hemoglobin 30.1 pg (27.0-33.0) Mean Corpuscular Hemoglobin Concent 32.8 g/dL (32.0-36.0) Red Cell Distribution Width 14.1 % (11.0-15.5) Platelet Count 280 K/uL (130-400) Mean Platelet Volume 9.9 fL (7.5-10.5) Immature Granulocyte % (Auto) 0.7 % (0-1) Neutrophils (%) (Auto) 69.1 % (40.0-77.0) Lymphocytes (%) (Auto) 18.6 % (21.0-51.0) L Monocytes (%) (Auto) 9.5 % (3.0-13.0) Eosinophils (%) (Auto) 1.7 % (0.0-8.0) Basophils (%) (Auto) 0.4 % (0.0-5.0) Neutrophils # (Auto) 5.3 K/uL (1.8-7.7) Lymphocytes # (Auto) 1.4 K/uL (1.0-4.8) Monocytes # (Auto) 0.7 K/uL (0.1-1.0) Eosinophils # (Auto) 0.13 K/uL (0.00-0.70) Basophils # (Auto) 0.03 K/uL (0.00-0.20) Absolute Immature Granulocyte (auto 0.05 K/uL (0-1) Nucleated Red Blood Cells 0.0 % (0.0-0.19) Sodium Level 137 mmol/L (136-145) Potassium Level 4.6 mmol/L (3.5-5.1) Chloride Level 103 mmol/L (101-111) Carbon Dioxide Level 28 mmol/L (21-32) Blood Urea Nitrogen 17 mg/dL (7-18) Creatinine 0.8 mg/dL (0.5-1.3) Glomerular Filtration Rate Calc 96 mL/min (>90) Random Glucose 165 mg/dL (70-105) H Total Calcium 9.3 mg/dL (8.5-10.1) Urine Color LIGHT-YELLOW (YELLOW) Urine Appearance CLEAR (CLEAR) Urine pH 6.5 (5.0-8.0) Urine Specific [place] 1.025 (1.001-1.031) Urine Protein NEGATIVE mg/dL (NEGATIVE) Urine Glucose (UA) >=1000 mg/dL (NEGATIVE) H Urine Ketones NEGATIVE mg/dL (NEGATIVE) Urine Occult Blood NEGATIVE (NEGATIVE) Urine Nitrate NEGATIVE (NEGATIVE) Urine Bilirubin NEGATIVE mg/dL (NEGATIVE) Urine Urobilinogen 0.2 mg/dL (0.2-1.0) Urine Leukocyte Esterase NEGATIVE [place]/uL Urine RBC 0-1 /HPF (0-1) Urine WBC None /HPF (0-1) Urine Bacteria None /HPF (None Seen) Labs Reviewed?: Yes MDM MDM: DIFFERENTIAL DIAGNOSIS: UTI, SINUSITIS, URI, COVID, FLU, STREP PATIENT IS A 69-YEAR-OLD GENTLEMAN COMING IN TO BE EVALUATED FOR FACIAL DISCOMFORT. PATIENT STATES THAT THIS BEGAN EARLIER TODAY. ON PHYSICAL EXAM BILATERAL TYMPANIC MEMBRANE ERYTHEMA AND CONGESTION. BILATERAL NASAL TURBINATE SWELLING WELL OROPHARYNGEAL ERYTHEMA. ALL THESE PHYSICAL FINDINGS SUGGESTIVE OF SINUSITIS. PATIENT WILL BE DISCHARGED IN STABLE CONDITION WITH A DIAGNOSIS OF FRONTAL SINUSITIS ANTIBIOTICS AND SYMPTOMATIC TREATMENT WILL BE PROVIDED. ED Course Orders Procedure Category Date Status Time Covid Rna Naat LAB 06/22/24 Complete 07:21 Rapid (Group A Strep) LAB 06/22/24 Complete 07:21 Influenza Type A & B, LAB 06/22/24 Complete Rapid 07:21 Acetaminophen 500mg PHA 06/22/24 Complete Tab (Tylenol 500mg T 07:30 Dexamethasone 4mg/Ml PHA 06/22/24 Complete 1ml Vial (Dexametha 07:30 Cbc With Differential LAB 06/22/24 Complete 07:36 Basic Metabolic Panel LAB 06/22/24 Complete 07:36 Urinalysis LAB 06/22/24 Complete W/Microscopic 07:36 0.9%Nacl 1000ml (Ns PHA 06/22/24 Complete 1000ml) 08:00 Current Medications Medications (Trade) Dose Ordered Sig/Blaine Route PRN Reason Start Time Stop Time Status Last Admin Dose Admin Acetaminophen (TYLenol 500MG TAB) 1,000 mg ONCE ONCE PO 06/22/24 07:30 06/22/24 07:31 DC 06/22/24 07:36 Dexamethasone Sodium Phosphate (dexaMETHasone 4MG/ML 1ML VIAL) 4 mg ONCE ONCE IM 06/22/24 07:30 06/22/24 07:31 DC 06/22/24 07:36 Sodium Chloride 1,000 ml @ 0 mls/hr ONCE ONCE IV 06/22/24 08:00 06/22/24 08:01 DC 06/22/24 07:57 Vital Signs Date Time Temp Pulse Resp B/P (MAP) Pulse Ox O2 Delivery O2 Flow Rate FiO2 06/22/24 07:42 98.8 58 16 159/65 98 Room Air* 0 21 06/22/24 07:16 98.2 57 16 158/60 99 Room Air DX & DISP Disposition: Discharge Departure Impression: Primary Impression: Sinusitis, acute frontal Condition: Stable Scripts Loratadine (Loratadine) 10 Mg Tablet 1 TAB PO DAILY for allergy symptoms for 30 Days, #30 TAB 0 Refills Prov: CRISTAL GENTILE MD 06/22/24 Fluticasone Propionate (Flonase Nasal [place]) 50 Mcg/Actuation [place] 2 SPRAY NS DAILY, #16 GM 0 Refills Prov: CRISTAL GENTILE MD 06/22/24 Amoxicillin (Amoxicillin) 500 Mg Capsule 1 CAP PO TID for 10 Days, #30 CAP 0 Refills Prov: CRISTAL GENTILE MD 06/22/24 Additional Instructions: FOLLOW-UP WITH PRIMARY CARE PROVIDER IN 1 TO 2 DAYS. TAKE MEDICATIONS D IRECTED HERE IN THE EMERGENCY ROOM. OKAY TO CONTINUE HOME MEDICATIONS UNLESS OTHERWISE DISCUSSED DURING YOUR VISIT IN THE EMERGENCY ROOM TODAY. RETURN TO YOUR NEAREST EMERGENCY ROOM IF SYMPTOMS WORSEN OR IF THERE IS NO IMPROVEMENT. CALL 911 IF YOU NEED IMMEDIATE ASSISTANCE. TAKE TYLENOL [id number] NEEDED AND IF NO CONTRAINDICATIONS ARE PRESENT. INCREASE ORAL HYDRATION. A WOUND CULTURE OR URINE CULTURE WAS ORDERED HERE IN THE EMERGENCY ROOM DEPARTMENT PLEASE FOLLOW-UP WITH PRIMARY CARE PROVIDER AND ADVISE THEM TO GET REPEAT PORTS FROM OUR FACILITY. IF YOU HAD ANY STEFANY WRAP/SPLINTS THAT WERE APPLIED HERE, PLEASE DO NOT REMOVE THEM UNTIL YOU SEE YOUR PRIMARY CARE OR SPECIALTY. REFERRALS: Referrals: VERITO FANG MD (PCP) Time of Disposition: 09:45 CRISTAL GENTILE MD Jun 22, 2024 07:58
[2024-06-22 08:10] LABS: BASOPHILS # (AUTO) 0.03 K/uL (0.00-0.20); BASOPHILS % (AUTO) 0.4 % (0.0-5.0); EOSINOPHILS # (AUTO) 0.13 K/uL (0.00-0.70); EOSINOPHILS % (AUTO) 1.7 % (0.0-8.0); HEMATOCRIT 41.2 % (42-54); IMMATURE GRANULOCYTE ABSOLUTE 0.05 K/uL (0-1); LYMPHOCYTES # (AUTO) 1.4 K/uL (1.0-4.8); LYMPHOCYTES % (AUTO) 18.6 % (21.0-51.0); MEAN CORPUSCULAR HEMOGLOBIN 30.1 pg (27.0-33.0); MEAN CORPUSCULAR HGB CONC 32.8 g/dL (32.0-36.0); MONOCYTES # (AUTO) 0.7 K/uL (0.1-1.0); MONOCYTES % (AUTO) 9.5 % (3.0-13.0); NEUTROPHILS # (AUTO) 5.3 K/uL (1.8-7.7); NEUTROPHILS % (AUTO) 69.1 % (40.0-77.0); PLATELET COUNT (AUTO) 280 K/uL (130-400); RED BLOOD CELL COUNT(AUTO) 4.48 MIL/uL (4.50-6.20); RED CELL DISTRIBUTION WIDTH 14.1 % (11.0-15.5); WHITE BLOOD COUNT (AUTO) 7.6 K/uL (4.8-10.8)
[2024-06-22 08:44] LABS: CREATININE 0.8 mg/dL (0.5-1.3); POTASSIUM 4.6 mmol/L (3.5-5.1)
[2024-06-22 08:52] LABS: APPEARANCE,URINE CLEAR (CLEAR); BILIRUBIN,URINE NEGATIVE (NEGATIVE); COLOR,URINE LIGHT-YELLOW (YELLOW); GLUCOSE, URINE (UA) >=1000 mg/dL (NEGATIVE); KETONES,URINE NEGATIVE (NEGATIVE); LEUKOCYTE ESTERASE ,URINE NEGATIVE Leu/uL (NEGATIVE); NITRATE,URINE NEGATIVE (NEGATIVE); OCCULT BLOOD,URINE NEGATIVE (NEGATIVE); PH,URINE 6.5 (5.0-8.0); PROTEIN,URINE NEGATIVE (NEGATIVE); RBC,URINE 0-1 /HPF (0-1); UROBILINOGEN,URINE 0.2 mg/dL (0.2-1.0)
[2024-06-22] MEDS ORDERED: LORA10TA7 PO (09:46)
[2024-06-22] MEDS ORDERED: FLUT16H NS (09:46)
[2024-06-22] MEDS ORDERED: AMOX500C2 PO (09:46)
[2024-06-22 09:48] VITALS: BP 164/65; PULSE 53; RESP 16; TEMP 97.8; O2SAT 99
== END 2024-06-22 10:00 | disposition home or self-care (01) ==
LOC: EDH 07:12
DX: J01.10 Acute frontal sinusitis, unspecified (principal); E11.9 Type 2 diabetes mellitus without complications; E78.00 Pure hypercholesterolemia, unspecified; Z79.82 Long term (current) use of aspirin; Z79.84 Long term (current) use of oral hypoglycemic drugs; Z90.49 Acquired absence of other specified parts of digestive tract; Z20.822 Contact with and (suspected) exposure to COVID-19
CPT/HCPCS: 99284; 96360; 87635; 80048; 85025; 87880; 87804 ×2; 81001; 36415; 96372; J1100; J7030